=== PATIENT | male | born 1970 | race Caucasian/White ===

== ENCOUNTER → 2017-04-25 | Outpatient (CLI) | payer OTHER ==
[2017-04-25 13:05] LABS: ALANINE AMINOTRANSFERASE 91 U/L (12-78); ANION GAP 8 mmol/L (8-16); ASPARTATE AMINOTRANSFERASE 43 U/L (15-37); BILIRUBIN,TOTAL 0.4 mg/dL (0.1-1.0); CALCIUM, TOTAL 8.7 mg/dL (8.8-10.5); CARBON DIOXIDE 31 mmol/L (22-29); CHLORIDE 102 mmol/L (98-107); GLOMERULAR FILTR. RATE CALC > 60 mL/min (>60); POTASSIUM 3.1 mmol/L (3.5-5.1); SODIUM SERUM 141 mmol/L (136-145); TOTAL PROTEIN, SERUM 7.8 g/dL (6.4-8.2); UREA NITROGEN, BLOOD 17 mg/dL (7-18)
== END | disposition home or self-care (01) ==
LOC: LABPV 12:18 → EEVIPCON 12:18
PROVIDERS: ATTEND Emergency Medicine
DX: I11.9 Hypertensive heart disease without heart failure (principal)
CPT/HCPCS: 83735

== ENCOUNTER → 2017-06-16 | Outpatient (CLI) | payer SELFPAY | END | disposition home or self-care (01) | LOC: RADMN 15:49 | PROVIDERS: ATTEND Emergency Medicine | DX: M46.02 Spinal enthesopathy, cervical region (principal); M48.02 Spinal stenosis, cervical region; M25.78 Osteophyte, vertebrae | CPT/HCPCS: 72125 ==

== ENCOUNTER 2020-02-27 06:29 | Emergency (ER) | payer SELFPAY ==
[2020-02-27] MEDS ORDERED: METF-911 PO (06:35)
[2020-02-27] MEDS ORDERED: BENA20TA77 PO (06:35)
== END 2020-02-27 06:56 | disposition home or self-care (01) ==
LOC: EMS 06:29
DX: Z03.818 Encounter for observation for suspected exposure to other biological agents ruled out (principal); E11.9 Type 2 diabetes mellitus without complications; I10 Essential (primary) hypertension; F17.210 Nicotine dependence, cigarettes, uncomplicated
CPT/HCPCS: 87635; 99283; U0003